=== PATIENT | male | born 1965 | race Caucasian/White ===

== ENCOUNTER 2021-06-07 12:04 | Emergency (ER) | payer SELFPAY ==
--- NOTE | 2021-06-07 12:34 | EDM.PDOC ---
ED HPI GENERAL MEDICAL PROBLEM - General Chief Complaint: Chest Pain Stated Complaint: CHEST PAIN, SOB, TIGHTNESS IN SHOULDERS Time Seen by Provider: 06/07/21 12:05 Source of Information: Reports: Patient, Family History Limitations: Reports: No Limitations - History of Present Illness INITIAL COMMENTS - FREE TEXT/NARRATIVE: 56-year-old male, usually healthy who exercises regularly and has no history of cardiac problems, developed a very sharp and sudden substernal and epigastric pain about 2-1/2 hours ago that then slowly radiated into the shoulders. It was painful to breathe initially, he did not develop nausea, vomiting or diaphoresis. The pain is now generalized into her shoulders especially the right shoulder and feels heavy. He still having some chest pain. No abdominal pain, he did have some heartburn initially. He exercises regularly, in fact rides bike vigorously and has no problem. No significant family history of coronary artery disease other than his mother. He does not have a regular doctor, does not go to the doctor, has no idea what his cholesterol has, but was evaluated for chest pain about 10 years ago with a stress test and everything wa s fine. He has been sober from alcohol for 20 years and does not smoke. Onset: Sudden Duration: Hour(s): (2-1/2 hours ago) Location: Reports: Chest, Abdomen. Denies: Back Quality: Reports: Sharp, Stabbing Worsens with: Reports: Breathing, Movement Associated Symptoms: Reports: Other (Developed a dull ache and numb feeling in his shoulders, right greater than left) - Related Data Allergies Allergy/AdvReac Type Severity Reaction Status Date / Time No Known Allergies Allergy Verified 06/07/21 12:08 Home Meds: Home Meds NK [No Known Home Meds] 06/07/21 [History] Social & Family History - Tobacco Use Tobacco Use Status *Q: Never Tobacco User - Caffeine Use Caffeine Use: Reports: None - Recreational Drug Use Recreational Drug Use: No ED ROS GENERAL - Review of Systems Review Of Systems: See Below Constitutional: Reports: Malaise. Denies: Fever, Chills HEENT: Reports: No Symptoms Respiratory: Reports: Pleuritic Chest Pain. Denies: Shortness of Breath, Cough Cardiovascular: Reports: Chest Pain, Lightheadedness. Denies: Palpitations GI/Abdominal: Denies: Diarrhea, Nausea, Vomiting : Reports: No Symptoms Musculoskeletal: Reports: Other (See HPI) Skin: Denies: Pallor, Diaphoresis Neurological: Reports: Numbness (Somewhat of a numb sensation in his shoulders) Psychiatric: Reports: Anxiety ED EXAM, GENERAL - Physical Exam Exam: See Below Exam Limited By: No Limitations General Appearance: Alert, No Apparent Distress, Other (Feeling much better, calm down and symptoms have resolved) Eye Exam: Bilateral Eye: Normal Inspection Head: Atraumatic Neck: Supple, Non-Tender Respiratory/Chest: Lungs Clear Cardiovascular: Regular Rate, Rhythm. No: Tachycardia, Extra Beats GI/Abdominal: Soft, Non-Tender Extremities: Normal Inspection. No: Pedal Edema, Joint Swelling Neurological: Alert, Oriented Psychiatric: Anxious Skin Exam: Warm, Dry #1 Interpretation EKG Date: 06/07/21 Time: 12:05 Rhythm: NSR Course - Vital Signs Last Recorded V/S: Last Vital Signs Temp 98.0 F 06/07/21 12:11 Pulse 72 06/07/21 12:11 Resp 14 06/07/21 12:11 BP 154/102 H 06/07/21 12:11 Pulse Ox 99 06/07/21 12:11 - Orders/Labs/Meds Orders: Active Orders 24 hr Category Date Time Status EKG 12 Lead [EK] Routine Ther 06/07/21 12:26 Ordered Labs: Laboratory Tests 06/07/21 Range/Units 12:26 Troponin I < 0.017 (0.000-0.056) ng/mL - Re-Assessments/Exams Free Text/Narrative Re-Assessment/Exam: 06/07/21 12:33 EKG done on arrival while the patient was still having some symptoms was completely normal. By the time I was done interviewing and examining the patient his symptoms were basically gone. He was very concerned about his bill, he has no insurance so a minimum of a 2 view chest x-ray and troponin will be obtained. X-ray will be done first, troponin will be drawn at noon which will be 3 hours after the symptoms started. If he redevelops symptoms he will be treated for angina. 06/07/21 13:34 Patient remained comfortable while awaiting the troponin result, which was 0. He will be discharged with a diagnosis of atypical chest pain, likely esophageal spasm and recommended to take omeprazole daily for the next 1 to 2 weeks. He can return anytime if symptoms recur and are persistent. Departure - Departure Time of Disposition: 13:46 Disposition: Home, Self-Care 01 Clinical Impression: Atypical chest pain - Discharge Information Instructions: Nonspecific Chest Pain, Adult, [id number] Referrals: PCP,None [Primary Care Provider] - Forms: ED Department Discharge Care Plan Goals: Consider omeprazole daily for the next 10 to 20 days, increase activity and diet as tolerated and return anytime if symptoms redevelop and are persistent or you develop other concerns. A general physical with your regular doctor or primary care provider is recommended. Sepsis Event Note (ED) - Evaluation Sepsis Screening Result: No Definite Risk - Focused Exam Vital Signs: Vital Signs Temp Pulse Resp BP Pulse Ox 06/07/21 12:11 98.0 F 72 14 154/102 H 99 - My Orders Last 24 Hours: My Active Orders 06/07/21 12:26 EKG 12 Lead [EK] Routine - Assessment/Plan Last 24 Hours: My Active Orders 06/07/21 12:26 EKG 12 Lead [EK] Routine
--- NOTE | 2021-06-07 13:10 | CRLCR ---
For Patients: As a result of the Century Cures Act, medical imaging exams and procedure reports are released immediately into your electronic medical record. You may view this report before your referring provider. If you have questions, please contact your health care provider. INDICATION: dyspnea INDICATION: Dyspnea. TECHNIQUE: Chest 2 views. COMPARISON: None FINDINGS: Cardiovascular and mediastinum: Heart size and vasculature are normal in caliber and appearance. Mediastinum is within normal limits. Lungs and pleural spaces: Lungs are clear. No sign of infiltrate or mass. No sign of pleural effusion. No pneumothorax. Bones and soft tissues: No significant findings. IMPRESSION: Lungs are clear. Dictated by Shilo Estrella MD @ 06/07/2021 1:09:35 PM Dictated by: Shilo Estrella MD @ 06/07/2021 13:09:55 (Electronically Signed)
== END 2021-06-07 13:46 | disposition home or self-care (01) ==
LOC: JP.ED 12:04
DX: R07.89 Other chest pain (principal); R10.13 Epigastric pain
CPT/HCPCS: 36415; 71046; 84484; 93005; 99285-25